=== PATIENT | male | born 1945 | race Caucasian/White ===

== ENCOUNTER 2017-09-18 09:33 | Emergency (ER) | payer MEDICARE, MEDICAID ==
[2017-09-18] MEDS ORDERED: Sodium Chloride 0.9% 10 ML Syringe FLUSH PRN (09:51)
--- NOTE | 2017-09-18 09:57 | EDM.PDOC ---
ED HPI GENERAL MEDICAL PROBLEM - General Chief Complaint: Abdominal Pain Stated Complaint: NASEOUS/DIZZY/WEAK Time Seen by Provider: 09/18/17 09:40 Source of Information: Reports: Patient History Limitations: Reports: No Limitations - History of Present Illness INITIAL COMMENTS - FREE TEXT/NARRATIVE: Patient comes in with 12 day history of abdominal discomfort mid epigastric region. Patient states he vomited one time on the when the discomfort had started ever since then he's been unable to eat he states that he will go from a lying position to sitting up position going from hot to cold has not had an appetite describes the discomfort as pressure just across entire abdominal cavity states she's been having black stools now for about a week or 2 and has not been eating. Denies any fever that he is aware of chest Discomfort shortness of breath Onset: Gradual Onset Date: 09/07/17 Duration: Getting Worse Location: Reports: Abdomen Quality: Reports: Pressure Severity: Moderate Improves with: Reports: Movement Associated Symptoms: Reports: Fever/Chills, Malaise, Nausea/Vomiting, Weakness Middle Abdominal Pain Score (Numeric/FACES): 4 - Related Data Allergies Allergy/AdvReac Type Severity Reaction Status Date / Time No Known Allergies Allergy Verified 09/18/17 10:33 Home Meds: Home Meds Linagliptin [Tradjenta] 5 mg PO DAILY 09/18/17 [History] Lisinopril [Lisinopril] 20 mg PO DAILY 09/18/17 [History] Simvastatin [Zocor] 40 mg PO BEDTIME 09/18/17 [History] ED ROS GENERAL - Review of Systems Review Of Systems: See Below Constitutional: Reports: Chills, Malaise, Fatigue, Night Sweats HEENT: Reports: No Symptoms Respiratory: Reports: No Symptoms Cardiovascular: Reports: No Symptoms Endocrine: Reports: No Symptoms GI/Abdominal: Reports: Abdominal Pain, Black Stool, Diarrhea, Distension, Nausea , Vomiting : Reports: No Symptoms Musculoskeletal: Reports: No Symptoms Skin: Reports: No Symptoms Neurological: Reports: No Symptoms Psychiatric: Reports: No Symptoms ED EXAM, GI/ABD - Physical Exam Exam: See Below Exam Limited By: No Limitations General Appearance: Alert, WD/WN, No Apparent Distress Respiratory/Chest: Chest Non-Tender, Decreased Breath Sounds, Crackles Cardiovascular: Normal Peripheral Pulses, Regular Rate, Rhythm, No Edema, No Gallop, No JVD, No Murmur, No Rub GI/Abdominal Exam: Tender, Abnormal Bowel Sounds Rectal (Males) Exam: Black Stool Extremities: Normal Inspection, Normal Range of Motion, Non-Tender, No Pedal Edema, Normal Capillary Refill Neurological: Alert, Oriented, CN II-XII Intact, Normal Cognition Psychiatric: Normal Affect, Normal Mood Skin Exam: Warm, Dry, Intact, Normal Color, No Rash EKG INTERPRETATION Rhythm: Other Course - Vital Signs Last Recorded V/S: Last Vital Signs Temp 36.4 C 09/18/17 09:45 Pulse 136 H 09/18/17 13:00 Resp 20 09/18/17 13:00 BP 90/60 09/18/17 13:00 Pulse Ox 91 L 09/18/17 13:00 - Orders/Labs/Meds Orders: Active Orders 24 hr Category Date Time Status EKG 12 Lead [EKG Documentation Completion] [RC] STAT Care 09/18/17 09:45 Ordered EKG Documentation Completion [RC] URGENT Care 09/18/17 09:51 Ordered Abdomen Pelvis wo Cont [CT] Stat Exams 09/18/17 11:27 Taken CULTURE BLOOD [BC] Stat Lab 09/18/17 12:48 Received CULTURE BLOOD [BC] Stat Lab 09/18/17 12:54 Received CULTURE URINE [RM] Stat Lab 09/18/17 12:48 Received Blood Culture x2 Reflex Set [OM.PC] Stat Oth 09/18/17 12:36 Ordered Peripheral IV Insertion Adult [OM.PC] Routine Oth 09/18/17 09:51 Ordered Labs: Laboratory Tests 09/18/17 09/18/17 09/18/17 Range/Units 10:05 10:06 10:07 WBC 14.3 H (4.0-10.0) x10^3/uL RBC 4.60 (4.5-6.0) x10^6/uL Hgb 14.7 (14.0-18.0) g/dL Hct 43.5 (40.0-52.0) % MCV 94.6 H (78.0-93.0) fL MCH 32.0 (26.0-32.0) pg MCHC 33.8 (32.0-36.0) g/dL RDW Coeff of Riki 12.8 (10.0-15.0) % Plt Count 256 (130-400) x10^3/uL Neut % (Auto) 84.5 H (50.0-80.0) % Lymph % (Auto) 6.5 L (25.0-50.0) % [place] % (Auto) 8.1 (2.0-11.0) % Eos % (Auto) 0.8 (0.0-4.0) % Baso % (Auto) 0.1 L (0.2-1.2) % APTT (22.0-34.0) SEC Sodium (136-145) mmol/L Potassium (3.5-5.1) mmol/L Chloride (98-107) mmol/L Carbon Dioxide (21-32) mmol/L BUN (7-18) mg/dL Creatinine (0.70-1.30) mg/dL Est Cr Clr Drug Dosing Estimated GFR (MDRD) Glucose (74-106) mg/dL Lactic Acid 1.4 (0.4-2.0) mmol/L Calcium (8.5-10.1) mg/dL Corrected Calcium (8.5-10.1) mg/dL Total Bilirubin (0.2-1.0) mg/dL AST (15-37) U/L ALT (16-63) U/L Alkaline Phosphatase (46-116) U/L Total Protein (6.4-8.2) g/dL Albumin (3.4-5.0) g/dL Globulin Albumin/Globulin Ratio Urine Color (YELLOW) Urine Appearance (CLEAR) Urine pH (5.0-8.0) Ur Specific [place] Urine Protein (NEGATIVE) mg/dL Urine Glucose (UA) (NEGATIVE) mg/dL Urine Ketones (NEGATIVE) mg/dL Urine Occult Blood (NEGATIVE) Urine Nitrite (NEGATIVE) Urine Bilirubin (NEGATIVE) Urine Urobilinogen (0.2) EU/dL Ur Leukocyte Esterase (NEGATIVE) Urine RBC (NOT SEEN) /HPF Urine WBC (NOT SEEN) /HPF Ur Squamous Epith Cells (NEGATIVE) /HPF Urine Bacteria (NEGATIVE) /HPF Hyaline Casts (NEGATIVE) /HPF Urine Mucus (NEGATIVE) /LPF Stool Occult Blood Negative (NEGATIVE) 09/18/17 09/18/17 09/18/17 Range/Units 10:07 10:07 12:45 WBC (4.0-10.0) x10^3/uL RBC (4.5-6.0) x10^6/uL Hgb (14.0-18.0) g/dL Hct (40.0-52.0) % MCV (78.0-93.0) fL MCH (26.0-32.0) pg MCHC (32.0-36.0) g/dL RDW Coeff of Riki (10.0-15.0) % Plt Count (130-400) x10^3/uL Neut % (Auto) (50.0-80.0) % Lymph % (Auto) (25.0-50.0) % [place] % (Auto) (2.0-11.0) % Eos % (Auto) (0.0-4.0) % Baso % (Auto) (0.2-1.2) % APTT 26.6 (22.0-34.0) SEC Sodium 136 (136-145) mmol/L Potassium 5.2 H (3.5-5.1) mmol/L Chloride 101 (98-107) mmol/L Carbon Dioxide 23 (21-32) mmol/L BUN 40 H (7-18) mg/dL Creatinine 1.8 H (0.70-1.30) mg/dL Est Cr Clr Drug Dosing TNP Estimated GFR (MDRD) 37 Glucose 160 H (74-106) mg/dL Lactic Acid (0.4-2.0) mmol/L Calcium 8.6 (8.5-10.1) mg/dL Corrected Calcium 9.08 (8.5-10.1) mg/dL Total Bilirubin 0.7 (0.2-1.0) mg/dL AST 15 (15-37) U/L ALT 33 (16-63) U/L Alkaline Phosphatase 70 (46-116) U/L Total Protein 8.1 (6.4-8.2) g/dL Albumin 3.4 (3.4-5.0) g/dL Globulin 4.7 Albumin/Globulin Ratio 0.72 Urine Color Cammie H (YELLOW) Urine Appearance Clear (CLEAR) Urine pH 5.5 (5.0-8.0) Ur Specific [place] 1.025 Urine Protein 100 H (NEGATIVE) mg/dL Urine Glucose (UA) Negative (NEGATIVE) mg/dL Urine Ketones Negative (NEGATIVE) mg/dL Urine Occult Blood Negative (NEGATIVE) Urine Nitrite Negative (NEGATIVE) Urine Bilirubin Small H (NEGATIVE) Urine Urobilinogen 0.2 (0.2) EU/dL Ur Leukocyte Esterase Negative (NEGATIVE) Urine RBC Not seen (NOT SEEN) /HPF Urine WBC 0-5 (NOT SEEN) /HPF Ur Squamous Epith Cells Rare (NEGATIVE) /HPF Urine Bacteria Not seen (NEGATIVE) /HPF Hyaline Casts Few H (NEGATIVE) /HPF Urine Mucus Rare H (NEGATIVE) /LPF Stool Occult Blood (NEGATIVE) Meds: Medications Discontinued Medications Generic Name Dose Route Start Last Admin Trade Name Freq PRN Reason Stop Dose Admin Diltiazem HCl 20 mg 09/18/17 10:23 09/18/17 10:29 Diltiazem IVPUSH 09/18/17 10:24 20 mg ONETIME ONE Administration Heparin Sodium (Porcine) 4,000 units 09/18/17 12:38 09/18/17 12:51 Heparin Sodium IVPUSH 09/18/17 12:39 4,000 units .BOLUS ONE Administration Sodium Chloride 1,000 mls @ 500 mls/hr 09/18/17 10:16 09/18/17 10:19 Normal Saline IV 09/18/17 12:15 500 mls/hr ONETIME ONE Administration Diltiazem HCl 100 mg/ Sodium 100 mls @ 5 mls/hr 09/18/17 11:00 09/18/17 12:19 Chloride IV 15 mg/hr TITRATE ANISH 15 mls/hr Protocol Titration 5 MG/HR Piperacillin Sod/Tazobactam 100 mls @ 200 mls/hr 09/18/17 12:17 09/18/17 12: 27 Sod 4.5 gm/ Sodium Chloride IV 09/18/17 12:46 200 mls/hr ONETIME ONE Administration Sodium Chloride 1,000 mls @ 500 mls/hr 09/18/17 12:37 09/18/17 12:55 Normal Saline IV 09/18/17 14:36 500 mls/hr ONETIME ONE Administration Heparin Sodium/Sodium Chloride 25,000 units in 500 mls @ 20 mls/hr 09/18/17 12 :45 09/18/17 12:52 Heparin 25,000 Units In 1/2 Ns 500 Ml IV 1,000 units/hr TITRATE ANISH 20 mls/hr Protocol Administration 1,000 UNITS/HR Sodium Chloride 10 ml 09/18/17 09:51 Saline Flush FLUSH ASDIRECTED PRN Keep Vein Open - Radiology Interpretation Free Text/Narrative:: 1. Mild bibasilar infiltrates with consistent with pneumonia 2. mild dilatation of the proximal small bowel left her transition point suggesting an mild ileus or gastroenteritis 3. 3.7 cm infrarenal abdominal aortic aneurysm CT Results Date: 09/18/17 - Re-Assessments/Exams Free Text/Narrative Re-Assessment/Exam: 09/18/17 12:27 Contact made with [facility] in [facility] regarding in CT results and patient's clinical status. Dr. [facility] has been so kind to accept the care of this patient. We will transport this patient by ALS ambulance for further evaluation of cardiac management along with pneumonia management. Departure - Departure Time of Disposition: 13:00 Disposition: DC/[facility]fer to [facility] Condition: Good Clinical Impression: Dehydration, Gastroenteritis, Abdominal aortic aneurysm (AAA) 3.0 cm to 5.5 cm in diameter in male Pneumonia Qualifiers: Pneumonia type: due to unspecified organism Laterality: bilateral Lung location : lower lobe of lung Qualified Code(s): J18.9 - Pneumonia, unspecified organism Atrial fibrillation Qualifiers: Atrial fibrillation type: unspecified Qualified Code(s): I48.91 - Unspecified atrial fibrillation - Discharge Information Referrals: Emily Larsen DO [Primary Care Provider] - Forms: ED Department Discharge, Interfacility Transfer EMTALA - My Orders Last 24 Hours: My Active Orders 09/18/17 09:45 EKG 12 Lead [EKG Documentation Completion] [RC] STAT 09/18/17 09:51 EKG Documentation Completion [RC] URGENT Peripheral IV Insertion Adult [OM.PC] Routine 09/18/17 11:27 Abdomen Pelvis wo Cont [CT] Stat 09/18/17 12:36 Blood Culture x2 Reflex Set [OM.PC] Stat 09/18/17 12:48 CULTURE BLOOD [BC] Stat CULTURE URINE [RM] Stat 09/18/17 12:54 CULTURE BLOOD [BC] Stat - Assessment/Plan Last 24 Hours: My Active Orders 09/18/17 09:45 EKG 12 Lead [EKG Documentation Completion] [RC] STAT 09/18/17 09:51 EKG Documentation Completion [RC] URGENT Peripheral IV Insertion Adult [OM.PC] Routine 09/18/17 11:27 Abdomen Pelvis wo Cont [CT] Stat 09/18/17 12:36 Blood Culture x2 Reflex Set [OM.PC] Stat 09/18/17 12:48 CULTURE BLOOD [BC] Stat CULTURE URINE [RM] Stat 09/18/17 12:54 CULTURE BLOOD [BC] Stat
[2017-09-18] MEDS ORDERED: Sodium Chloride 0.9% 1,000 ML IV ONE ×2 (10:16→12:37)
[2017-09-18] MEDS ORDERED: Diltiazem 25 MG/5 ML SDV IVPUSH ONE (10:23)
[2017-09-18 10:33] LABS: CHLORIDE,CL 101 mmol/L (98-107); SODIUM,NA 136 mmol/L (136-145)
[2017-09-18] MEDS ORDERED: Diltiazem 100 MG in Sodium Chloride 0.9% 100 ML IV SCH (11:00)
[2017-09-18] MEDS ORDERED: Piperacillin/Tazobactam 4.5 GM in Sodium Chloride 0.9% 100 ML IV ONE (12:17)
[2017-09-18] MEDS ORDERED: Heparin Sodium 5,000 Units/ML Vial IVPUSH ONE (12:38)
[2017-09-18] MEDS ORDERED: Heparin Sodium/0.45% NaCl 25,000 UNITS/500 ML BAG IV SCH (12:45)
== END 2017-09-18 13:50 | disposition short-term general hospital (02) ==
LOC: VM.ED 09:33
DX: I71.4 Abdominal aortic aneurysm, without rupture (principal); I48.91 Unspecified atrial fibrillation; J18.9 Pneumonia, unspecified organism; K52.9 Noninfective gastroenteritis and colitis, unspecified; Z79.899 Other long term (current) drug therapy
CPT/HCPCS: 36415; 74176; 80053; 81001; 82274; 83605; 85025; 85730; 87040; 87086; 93005; 94760; 96361; 96365; 96366; 96368; 96375; 99285; J1644; J2543; J3490; J7030; J7050; 99284-GF

== ENCOUNTER 2023-11-28 10:00 | Emergency (ER) | payer MEDICARE, MEDICAID ==
[2023-11-28] MEDS: Acetaminophen 500 MG Tab PO ONE (10:15)
[2023-11-28 10:27] LABS: BASOPHILS PERCENT AUTO 0.1 % (0.2-1.2); HEMATOCRIT 39.4 % (40.0-52.0); HEMOGLOBIN 13.2 g/dL (14.0-18.0); IMMATURE GRAN ABSOLUTE AUTO 0.17 x10^3/uL (0.00-0.07); LYMPHOCYTES ABSOLUTE AUTO 0.3 x10^3/uL (1.0-4.8); LYMPHOCYTES PERCENT AUTO 1.5 % (25.0-50.0); MEAN CORPUSCULAR HGB CONC 33.5 g/dL (32.0-36.0); MEAN CORPUSCULAR VOLUME 92.5 fL (78.0-93.0); MONOCYTES ABSOLUTE AUTO 0.5 x10^3/uL (0.0-0.8); MONOCYTES PERCENT AUTO 2.5 % (2.0-11.0); NEUTROPHILS ABSOLUTE AUTO 18.7 x10^3/uL (1.8-7.7); RED BLOOD CELL COUNT 4.26 x10^6/uL (4.5-6.0); WHITE BLOOD CELL COUNT,WBC 19.6 x10^3/uL (4.0-10.0)
[2023-11-28 10:34] LABS: PLATELET COUNT,PLT 157 x10^3/uL (130-400)
[2023-11-28] MEDS: Metoprolol Tartrate 5 MG/5 ML SDV IVPUSH ONE (10:38)
[2023-11-28 10:41] LABS: INR 1.4 (0.9-1.1); PROTHROMBIN TIME 13.7 SEC (8.9-11.5); PTT,PARTIAL THROMBOPLSTIN TIME 30.1 SEC (21.9-33.8)
[2023-11-28] MEDS: cefTRIAXone 2 GM Vial IVPUSH ONE (10:44)
[2023-11-28 10:48] LABS: LACTIC ACID 2.6 mmol/L (0.4-2.0)
[2023-11-28 10:54] LABS: A/G RATIO 0.74; ALANINE AMINOTRANSFERASE,ALT 7 U/L (16-63); ALBUMIN 3.5 g/dL (3.4-5.0); ALKALINE PHOSPHATASE 65 U/L (46-116); ANION GAP 20.2 mmol/L (5-15); ASPARTATE AMNIOTRANSFERASE,AST 10 U/L (15-37); BLOOD UREA NITROGEN,BUN 33 mg/dL (7-18); C-REACTIVE PROTEIN 11.94 mg/dL (<=0.50); CALCIUM 8.9 mg/dL (8.5-10.1); CARBON DIOXIDE,CO2 22 mmol/L (21-32); CHLORIDE,CL 101 mmol/L (98-107); CREATININE 2.2 mg/dL (0.70-1.30); ESTIMATED GFR 30 mL/min (>=60); ETHANOL BLOOD MEDICAL < 3 mg/dL (0-3); GLUCOSE RANDOM 202 mg/dL (70-99); MAGNESIUM 1.7 mg/dL (1.8-2.4); POTASSIUM,K 5.2 mmol/L (3.5-5.1); PROTEIN TOTAL,TP 8.2 g/dL (6.4-8.2); SODIUM,NA 138 mmol/L (136-145); TSH ULTRASENSITIVE 2.573 uIU/mL (0.358-3.74)
[2023-11-28 10:57] LABS: HCO3 VENOUS,POC 21 mmol/L (22-29); O2 SATURATION VENOUS,POC 50 %; PCO2 VENOUS,POC 39 mmHg (41-51); PH VENOUS,POC 7.35 pH (7.32-7.43); PO2 VENOUS,POC 28 mmHg
[2023-11-28] MEDS: Diltiazem 50 MG/10 ML SDV IVPUSH ONE (11:09)
[2023-11-28] MEDS: Lactated Ringers 1,000 ML IV ONE (11:10)
[2023-11-28 11:28] LABS: CORONAVIRUS COVID-19 NAA NEGATIVE (NEGATIVE)
[2023-11-28 11:29] LABS: INFLUENZA A NAA NEGATIVE (NEGATIVE); INFLUENZA B NAA NEGATIVE (NEGATIVE); RESPIRATORY SYNCYTIAL VIR NAA NEGATIVE (NEGATIVE)
[2023-11-28 11:30] LABS: APPEARANCE,URINE SLIGHTLY CLOUDY (CLEAR); BILIRUBIN,URINE NEGATIVE (NEGATIVE); COLOR,URINE YELLOW (YELLOW); GLUCOSE,URINE NEGATIVE (NEGATIVE); KETONES,URINE NEGATIVE (NEGATIVE); LEUKOCYTE ESTERASE,URINE NEGATIVE (NEGATIVE); NITRITE,URINE NEGATIVE (NEGATIVE); OCCULT BLOOD,URINE TRACE-LYSED (NEGATIVE); PH,URINE 5.5 (5.0-8.0); PROTEIN,URINE 100 mg/dL (NEGATIVE); UROBILINOGEN,URINE 0.2 EU/dL (0.2)
[2023-11-28 11:31] LABS: BACTERIA,URINE OCCASIONAL /HPF (NOT SEEN); MUCUS,URINE FEW /LPF (NOT SEEN); WBC,URINE 0-5 /HPF (NOT SEEN)
[2023-11-28] MEDS: VANCOmycin 2 GM/400 ML 2 GM in Premix Bag 1 BAG IV ONE (11:38)
[2023-11-28] MEDS: Magnesium Sulfate/Water 2 GM in Premix Bag 1 BAG IV ONE (11:40)
[2023-11-28] MEDS: Diltiazem 125 MG in Sodium Chloride 0.9% 100 ML IV SCH (11:47)
== END 2023-11-28 12:12 | disposition short-term general hospital (02) ==
LOC: VM.ED 10:00
DX: A41.9 Sepsis, unspecified organism (principal); I48.91 Unspecified atrial fibrillation; I10 Essential (primary) hypertension; E11.9 Type 2 diabetes mellitus without complications; Z79.899 Other long term (current) drug therapy
CPT/HCPCS: 0241U; 36415; 71045; 80053; 80307; 81001; 82803; 83605; 83735; 83880; 84145; 84443; 84484; 85025; 85610; 85730; 86140; 87040; 93010; 96365; 96368; 96375; 96376; 99284; 99285-25; J0696; J3370; J3475; J3490; J7120

== ENCOUNTER 2024-09-19 15:38 | Emergency (ER) | payer MEDICARE ==
[2024-09-19] MEDS: Metoprolol Tartrate 5 MG/5 ML SDV IVPUSH ONE (16:35)
[2024-09-19 16:49] LABS: BASOPHILS PERCENT AUTO 0.1 % (0.2-1.2); EOSINOPHILS ABSOLUTE AUTO 0.4 x10^3/uL (0.0-0.5); EOSINOPHILS PERCENT AUTO 4.3 % (0.0-4.0); HEMATOCRIT 40.3 % (40.0-52.0); HEMOGLOBIN 13.9 g/dL (14.0-18.0); IMMATURE GRAN ABSOLUTE AUTO 0.01 x10^3/uL (0.00-0.07); LYMPHOCYTES ABSOLUTE AUTO 0.9 x10^3/uL (1.0-4.8); LYMPHOCYTES PERCENT AUTO 10.8 % (25.0-50.0); MEAN CORPUSCULAR HEMOGLOBIN 32.1 pg (26.0-32.0); MEAN CORPUSCULAR HGB CONC 34.5 g/dL (32.0-36.0); MEAN CORPUSCULAR VOLUME 93.1 fL (78.0-93.0); MONOCYTES ABSOLUTE AUTO 0.5 x10^3/uL (0.0-0.8); MONOCYTES PERCENT AUTO 6.3 % (2.0-11.0); NEUTROPHILS ABSOLUTE AUTO 6.6 x10^3/uL (1.8-7.7); NEUTROPHILS PERCENT AUTO 78.4 % (50.0-80.0); PLATELET COUNT,PLT 211 x10^3/uL (130-400); RED BLOOD CELL COUNT 4.33 x10^6/uL (4.5-6.0); WHITE BLOOD CELL COUNT,WBC 8.4 x10^3/uL (4.0-10.0)
[2024-09-19 16:59] LABS: HCO3 VENOUS,POC 25 mmol/L (22-29); O2 SATURATION VENOUS,POC 78 %; PCO2 VENOUS,POC 42 mmHg (41-51); PH VENOUS,POC 7.38 pH (7.32-7.43); PO2 VENOUS,POC 43 mmHg
[2024-09-19 17:12] LABS: A/G RATIO 0.84; ALBUMIN 3.6 g/dL (3.4-5.0); BILIRUBIN TOTAL 0.5 mg/dL (0.2-1.0); CALCIUM 9.3 mg/dL (8.5-10.1); CREATININE 2.6 mg/dL (0.70-1.30); EST CRCL DRUG DOSING (CG) 21.56 mL/min; MAGNESIUM 2.3 mg/dL (1.8-2.4); POTASSIUM,K 3.8 mmol/L (3.5-5.1); PROTEIN TOTAL,TP 7.9 g/dL (6.4-8.2)
[2024-09-19 17:14] LABS: ANION GAP 11.8 mmol/L (5-15)
[2024-09-19] MEDS: Albuterol/Ipratropium 3.0-0.5 MG/3 ML Neb Soln NEB ONE (19:15)
[2024-09-19] MEDS: hydrALAZINE 20 MG/ML SDV IVPUSH ONE (19:35)
== END 2024-09-19 21:10 | disposition short-term general hospital (02) ==
LOC: VM.ED 15:38
DX: I13.0 Hypertensive heart and chronic kidney disease with heart failure and stage 1 through stage 4 chronic kidney disease, or unspecified chronic kidney disease (principal); I50.9 Heart failure, unspecified; I48.91 Unspecified atrial fibrillation; E78.00 Pure hypercholesterolemia, unspecified; N18.9 Chronic kidney disease, unspecified; E11.22 Type 2 diabetes mellitus with diabetic chronic kidney disease; Z79.899 Other long term (current) drug therapy
CPT/HCPCS: 36415; 71045; 80053; 82803; 83605; 83735; 83880; 84484; 85025; 93005; 94640; 96374; 96375; 99285; J0360; J3490; 93010; 99284; J7620-GY